=== PATIENT | male | born 1985 ===

== ENCOUNTER 2022-06-09 13:07 | Emergency (ER) | payer OTHER, SELFPAY ==
[2022-06-09 14:25] LABS: Amphetamine Not Detected (NotDetected); Barbiturates Screen Not Detected (NotDetected); Benzodiazepine Screen Not Detected (NotDetected); Cocaine Metabolite Screen Not Detected (NotDetected); Medtox Control Line Valid? VALID (VALID); Methadone Not Detected (NotDetected); Methamphetamine Not Detected (NotDetected); Opiate Screen Not Detected (NotDetected); Oxycodone Screen Not Detected (NotDetected); Phencyclidine (PCP) Not Detected (NotDetected); THC/Cannabinoid Screen Not Detected (NotDetected); Tricyclic Screen Not Detected (NotDetected)
== END 2022-06-09 14:52 ==
LOC: NAV ERS 13:07
DX: S60.512A Abrasion of left hand, initial encounter (principal); F10.129 Alcohol abuse with intoxication, unspecified; V49.40XA Driver injured in collision with unspecified motor vehicles in traffic accident, initial encounter
CPT/HCPCS: 70450; 80306; 80307